=== PATIENT | female | born 1985 | race Caucasian/White ===

== ENCOUNTER 2018-09-12 13:47 | Emergency (ER) | payer MEDICAID ==
[~2018-09-12] VITALS: Ht 162.6 cm; Wt 75.0 kg
[2018-09-12 14:51] VITALS: Ht 162.6 cm; Wt 75.0 kg
[2018-09-12] MEDS ORDERED: CEPH-443 PO (16:10)
--- NOTE | 2018-09-12 16:14 | ERD ---
ER Documentation Chief Complaint Chief Complaint S/P , SENT BY OB DUE TO INFLAMATION/REDNESS/PAIN, 0 DISCHARGE HPI 32-year-old female is here for a wound check for healing scar. She was told it may be infected. She states she had a fever yesterday but admits she did not take her temperature. Is been no bleeding or drainage. She states the wound is warm. ROS All systems reviewed and are negative except as per history of present illness. Medications Home Meds Active Scripts Cephalexin* (Keflex*) 500 Mg Capsule, 500 MG PO QID for 7 Days, CAP Prov:YOHANA LEPE PA-C 09/12/18 Allergies Allergies: Coded Allergies: Fish Containing Products (Verified Allergy, Intermediate, Headache, 09/12/18) PMhx/Soc Medical and Surgical Hx: pt denies Medical Hx History of Surgery: Yes (caesarian section) Hx Alcohol Use: No Hx Substance Use: No Hx Tobacco Use: No Smoking Status: Never smoker FmHx Family History: No diabetes Physical Exam Vitals Vital Signs Date Temp Pulse Resp B/P (MAP) Pulse Ox O2 O2 Flow FiO2 Time Delivery Rate 09/12/18 99.0 75 16 117/67 100 14:51 (84) Physical Exam INITIAL VITAL SIGNS: Reviewed by me GENERAL: Awake, alert, non-toxic, well-appearing. Interactive and smiling. Well-hydrated. No acute distress. HEAD: Atraumatic. NECK: Supple, no masses, no meningismus. RESPIRATORY: Clear to auscultation bilaterally. No retractions, grunting, flaring. No wheezing or rales. CV: Regular rate and rhythm. No murmurs, rubs, or gallops. ABDOMEN: Soft, non-distended, non-tender. No palpable masses. No hepatosplenomegaly. Negative Mcburneys, healing surgical scar lower abdomen with Steri-Strips in place, mild warmth, no significant surrounding erythema or induration, no fluctuance Procedures/MDM Patient is concerned her wound may be infected. It is mildly erythematous and mildly warm. She is afebrile well-appearing. She was started on Keflex. Patient counseled regarding my diagnostic impression and care plan. Prior to discharge all questions answered. Pt agrees with treatment plan and understands strict return precautions. Pt is instructed to follow up with [facility] [place] care provider within 24-48 hours. Precautionary instructions provided including instructions to return to the ER if not improving or for any worsening or changing symptoms or concerns. Departure Diagnosis: Primary Impression: Visit for wound check Condition: Stable Patient Instructions: Wound Care Additional Instructions: Llame al doctor HARITHA y daphne jace NITZA PARA DENTRO DE 1-2 REDMAN.Dgale a la secretaria que nosotros le instruimos hacer esta nitza.Avise o llame si cobos condicin se empeora antes de la nitza. Regresa aqui si peor o no mejor. YOHANA LEPE PA-C Sep 12, 2018 16:14
[2018-09-12 16:20] VITALS: BP 109/65; PULSE 71; RESP 16
== END 2018-09-12 18:36 | disposition home or self-care (01) ==
LOC: FTE 13:47
DX: Z48.01 Encounter for change or removal of surgical wound dressing (principal)
CPT/HCPCS: 99283

== ENCOUNTER 2018-09-14 11:20 | Emergency (ER) | payer MEDICAID ==
[~2018-09-14] VITALS: Wt 73.9 kg
[~2018-09-14 11:20] MED LIST: CEPH-443 PO
[2018-09-14] MEDS ORDERED: SOD CHLORIDE 0.9% 1,000 ML IV STA (12:22)
[2018-09-14] MEDS ORDERED: KETOROLAC 30 MG INJ IV STA (12:22)
[2018-09-14] MEDS ORDERED: ONDANSETRON 4 MG INJ IV STA (12:22)
[2018-09-14] MEDS ORDERED: CEFTRIAXONE 1 GM/50 ML (PMX) 50 ML IVPB ONE (12:30)
[2018-09-14] MEDS ORDERED: SOD CHLORIDE 0.9% 100 ML ONE ×2 (14:09→15:11)
[2018-09-14] MEDS ORDERED: IOHEXOL 300MG/ML 150 ML BTL ONE ×2 (14:09→15:11)
[2018-09-14] MEDS ORDERED: ONDANSETRON (ODT) 4 MG TAB ODT STA (15:22)
[2018-09-14] MEDS ORDERED: CLIN300C10 PO (15:24)
[2018-09-14] MEDS ORDERED: HYDR-4011 PO (15:24)
[2018-09-14] MEDS ORDERED: HYDROCODONE/APAP (5/325) TAB PO ONE (15:30)
--- NOTE | 2018-09-14 15:46 | ERD ---
ER Documentation Chief Complaint Chief Complaint POST OP PAIN FOLLOWING C SECTION HPI 32-year-old female presenting with postop pain to her site. Patient was seen here 2 days ago and discharged with Keflex. She had continued pain with some drainage noted to the site. She denies any fevers. Denies any vomiting. Denies changes in urination or bowel movement. Denies other medical problems. Is being seen at [facility] in [place]. Social history denies ROS All systems reviewed and are negative except as per history of present illness. Medications Home Meds Active Scripts Hydrocodone/Acetaminophen ([place] 5-325 Tablet) 1 Each Tablet, 1 TAB PO Q6H PRN for PAIN, #7 TAB Prov:FRANCISCO JAVIER CELIS PA-C 09/14/18 Clindamycin Hcl* (Clindamycin Hcl*) 300 Mg Capsule, 300 MG PO QID for 10 Days, CAP Prov:FRANCISCO JAVIER CELIS PA-C 09/14/18 Cephalexin* (Keflex*) 500 Mg Capsule, 500 MG PO QID for 7 Days, CAP Prov:YOHANA LEPE PA-C 09/12/18 Allergies Allergies: Coded Allergies: Fish Containing Products (Verified Allergy, Intermediate, Headache, 09/12/18) PMhx/Soc History of Surgery: Yes (caesarian section) Hx Alcohol Use: No Hx Substance Use: No Hx Tobacco Use: No Smoking Status: Never smoker FmHx Family History: No diabetes, No coronary disease, No other Physical Exam Vitals Vital Signs Date Temp Pulse Resp B/P (MAP) Pulse Ox O2 O2 Flow FiO2 Time Delivery Rate 09/14/18 98.6 78 18 114/50 99 11:26 (71) Physical Exam GENERAL: The patient is well-appearing, well-nourished, in no acute distress CHEST: Clear to auscultation bilaterally. There are no rales, wheezes or rhonchi. HEART: Regular rate and rhythm. No murmurs, clicks, rubs or gallops ABDOMEN:Soft, nontender and nondistended. Good bowel sounds. No rebound or guarding. No gross peritonitis. No gross organomegaly or masses. No Torres sign or McBurney point tenderness. SKIN: Erythema noted to the site with some purulent discharge. Surrounding erythema noted around the site. Result Diagram: 09/14/18 1245 09/14/18 1245 Results 24 hrs Laboratory Tests Test 09/14/18 12:45 09/14/18 14:19 09/14/18 14:25 White Blood Count 10.5 10^3/ul Red Blood Count 3.44 10^6/ul Hemoglobin 10.3 g/dl Hematocrit 32.8 % Mean Corpuscular Volume 95.3 fl Mean Corpuscular Hemoglobin 29.9 pg Mean Corpuscular 31.4 g/dl Hemoglobin Concent Red Cell Distribution Width 14.4 % Platelet Count 603 10^3/UL Mean Platelet Volume 9.5 fl Immature Granulocytes % 0.800 % Neutrophils % 71.2 % Lymphocytes % 19.2 % Monocytes % 7.3 % Eosinophils % 1.1 % Basophils % 0.4 % Nucleated Red Blood Cells % 0.0 /100WBC Immature Granulocytes # 0.080 10^3/ul Neutrophils # 7.5 10^3/ul Lymphocytes # 2.0 10^3/ul Monocytes # 0.8 10^3/ul Eosinophils # 0.1 10^3/ul Basophils # 0.0 10^3/ul Nucleated Red Blood Cells # 0.0 10^3/ul Sodium Level 138 mmol/L Potassium Level 3.9 mmol/L Chloride Level 105 mmol/L Carbon Dioxide Level 25 mmol/L Anion Gap 8 Blood Urea Nitrogen 16 mg/dl Creatinine 0.67 mg/dl Est Glomerular Filtrat > 60 mL/min Rate mL/min Glucose Level 93 mg/dl Calcium Level 9.2 mg/dl Total Bilirubin 0.4 mg/dl Direct Bilirubin 0.00 mg/dl Indirect Bilirubin 0.4 mg/dl Aspartate Amino 21 IU/L Transf (AST/SGOT) Alanine 17 IU/L Aminotransferase (ALT/SGPT) Alkaline Phosphatase 140 IU/L Total Protein 6.8 g/dl Albumin 3.5 g/dl Globulin 3.30 g/dl Albumin/Globulin Ratio 1.06 Lipase 136 U/L Urine Color YELLOW Urine Clarity CLOUDY Urine pH 6.0 Urine Specific [place] 1.012 Urine Ketones NEGATIVE mg/dL Urine Nitrite NEGATIVE mg/dL Urine Bilirubin NEGATIVE mg/dL Urine Urobilinogen NEGATIVE mg/dL Urine Leukocyte Esterase 3+ Carlos/ul Urine Microscopic RBC 5 /HPF Urine Microscopic WBC 154 /HPF Urine Squamous Epithelial Cells FEW /HPF Urine Bacteria FEW /HPF Urine Mucus FEW /HPF Urine Hemoglobin 3+ mg/dL Urine Glucose NEGATIVE mg/dL Urine Total Protein 1+ mg/dl POC Beta HCG, Qualitative NEGATIVE Current Medications Medications Dose Sig/Tierney Start Time Status Last (Trade) Ordered Route PRN Stop Time Admin Dose Reason Admin Sodium 1,000 ml @ Q1H STAT 09/14/18 DC 09/14/18 Chloride 1,000 mls/hr IV 12:22 12:49 09/14/18 13:21 Ondansetron 4 mg ONCE STAT 09/14/18 DC 09/14/18 HCl (Zofran IV 12:22 12:49 Inj) 09/14/18 12:23 Ketorolac 30 mg ONCE STAT 09/14/18 DC 09/14/18 Tromethamine IV 12: 12:49 (Toradol) 09/14/18 12:23 Ceftriaxone 50 ml @ ONCE ONCE 09/14/18 DC 09/14/18 Sodium 100 mls/hr IVPB 12:30 12:49 09/14/18 12:59 IV Flush 10 ml STK-MED 09/14/18 DC (NS 10 ml) ONCE .ROUTE 14:09 09/14/18 14:10 Sodium 100 ml @ ud STK-MED 09/14/18 DC Chloride ONCE .ROUTE 14:09/14/18 14:10 Iohexol 150 ml STK-MED 09/14/18 DC (Omnipaque ONCE .ROUTE 14: 300mg/ ml) 09/14/18 14:10 IV Flush 10 ml STK-MED 09/14/18 DC (NS 10 ml) ONCE .ROUTE 15:11 09/14/18 15:12 Sodium 100 ml @ ud STK-MED 09/14/18 DC Chloride ONCE .ROUTE 15:11 09/14/18 15:12 Iohexol 150 ml STK-MED 09/14/18 DC (Omnipaque ONCE .ROUTE 15: 300mg/ ml) 09/14/18 15:12 1 tab ONCE ONCE 09/14/18 DC 09/14/18 Acetaminophen PO 15:30 15:33 / 09/14/18 15:31 Hydrocodone Bitart ([place] (5/325)) Ondansetron 4 mg ONCE STAT 09/14/18 DC 09/14/18 HCl (Zofran ODT 15:22 15:33 Odt) 09/14/18 15:24 Procedures/MDM DIAGNOSTIC IMAGING REPORT Patient: MATT LUCAS : 1985 Age: 32 Sex: F MR #: [id number] DOS: 09/14/18 1222 Ordering MD: ALEKSANDR CELIS PA-C Location: [facility] Room/Bed: PROCEDURE: CT Abdomen and Pelvis with contrast. CLINICAL INDICATION: Abdominal pelvic pain. TECHNIQUE: CT scan of the abdomen and pelvis with contrast was performed on a multi-detector high-resolution CT scanner. The patient was scanned following the uncomplicated intravenous administration of 90 cc of Omnipaque 300. Coronal and sagittal reformatted images were obtained from the axial source images. Dorothy ges were reviewed on a high-resolution PACS workstation. The total exam CTDI equals 13.18 mGy and the total exam DLP equals 759.6 mGy-cm. DICOM images are available. One or more of the following dose reduction techniques were utilized: 1.) Automated exposure control 2.) Adjustment of the mA +/- kV according to patient's size 3.) Use of iterative reconstruction technique. COMPARISON: None. FINDINGS: Mild bibasilar partial atelectasis with small pleural effusions in the lung bases. Imaged portion of the heart is normal. No abnormality of the liver, spleen, adrenal glands, pancreas, gallbladder, or kidneys. Urinary bladder is within normal limits. There is mild prominence and ureteral wall enhancement of the left ureter (series 3 image 114). Aorta is normal in caliber. No free intraperitoneal air or loculated fluid collection. Stomach and small bowel are normal in caliber without evidence of obstruction. No evidence of abnormal bowel wall thickening or acute diverticulitis. No evidence of appendicitis. Uterus is enlarged and heterogeneously enhancing with overlying ventral abdominal wall incision, likely representing a recent . Small amount of free fluid and stranding in the pelvis. No acute osseous abnormality. IMPRESSION: Enlarged, and heterogeneous uterus with overlying ventral abdominal wall incision and small amount of free fluid/stranding in the pelvis, consistent with probable recent . Consider pelvis ultrasound if there is concern for retained products of conception or other pelvic organ abnormality. Mild prominence and ureteral wall enhancement of the left ureter without obstructing stone or hydronephrosis. Correlate with urinalysis to exclude urinary tract infection or hematuria. No free intraperitoneal air or loculated fluid collection. ER Course: Dr. Liu came and evaluated patient at bedside. She opened up the wound and put some iodoform packing and after purulence was extracted. Patient was given [place] for pain. MDM: 32-year-old female presenting with findings consistent with abscess at the site. I will perform an incision and drainage was performed in the ER. Patient has an appointment with her [facility] clinic at 9 AM in 2 days. Patient is discharged with clindamycin which was antibiotic choice by Dr. Liu. Patient is stable. I have low suspicion for sepsis. Patient is discharged stricter precautions. Urine culture sent given patient does have findings consistent with urinary tract infection but is currently taking Keflex. All questions answered at discharge Departure Diagnosis: Primary Impression: Postoperative complication Condition: Stable Patient Instructions: Post Op Wound Check, Infection Referrals: [facility] YOU HAVE RECEIVED A MEDICAL SCREENING EXAM AND THE RESULTS INDICATE THAT YOU DO NOT HAVE A CONDITION THAT REQUIRES URGENT TREATMENT IN THE EMERGENCY DEPARTMENT. FURTHER EVALUATION AND TREATMENT OF YOUR CONDITION CAN WAIT UNTIL YOU ARE SEEN IN YOUR DOCTORS OFFICE WITHIN THE NEXT 1-2 DAYS. IT IS YOUR RESPONSIBILITY TO M ENA AN APPOINTMENT FOR FOLOW-UP CARE. IF YOU HAVE A PRIMARY DOCTOR --you should call your primary doctor and schedule an appointment IF YOU DO NOT HAVE A PRIMARY DOCTOR YOU CAN CALL OUR PHYSICIAN REFERRAL HOTLINE AT IF YOU CAN NOT AFFORD TO SEE A PHYSICIAN YOU CAN CHOSE FROM THE FOLLOWING [facility] [address] [facility] [facility] [address] [facility] [facility] [address] [facility] [address] [facility]. [facility] [address] [facility]. [facility] [address] Additional Instructions: FOLLOW UP WITH YOUR PRIMARY CARE PHYSICIAN TOMORROW.Return to this facility if you are not improving as expected. FRANCISCO JAVIER CELIS PA-C Sep 14, 2018 15:46
[2018-09-14 16:23] VITALS: BP 110/67; PULSE 61; RESP 17
== END 2018-09-14 16:23 | disposition home or self-care (01) ==
LOC: FTE 11:20
DX: O99.89 Other specified diseases and conditions complicating pregnancy, childbirth and the puerperium (principal); G89.18 Other acute postprocedural pain; R10.2 Pelvic and perineal pain
CPT/HCPCS: 36415; 74177; 80053; 81001; 81025; 83690; 85025; 87070; 87086; 96365; 96366; 96375; J0696; J1885; J2405; J7030; Q9967; Z7502; Z7610